=== PATIENT | male | born 1985 | race Caucasian/White ===

== ENCOUNTER 2016-09-30 16:37 | Emergency (ER) | payer BC ==
[~2016-09-30] VITALS: Ht 177.8 cm; Wt 81.6 kg
[2016-09-30 16:43] VITALS: BP 136/87; PULSE 63; RESP 18; TEMP 98.3; O2SAT 98
[2016-09-30] MEDS ORDERED: IBUPROFEN 800 MG TABLET PO ONE (17:30)
[2016-09-30 18:00] VITALS: BP 136/87; PULSE 63; RESP 18; TEMP 98.3; O2SAT 98
== END 2016-09-30 18:00 | disposition home or self-care (01) ==
LOC: SED 16:37
DX: M25.571 Pain in right ankle and joints of right foot (principal); Z96.661 Presence of right artificial ankle joint
CPT/HCPCS: 99284

== ENCOUNTER 2017-05-05 20:49 | Emergency (ER) | payer BC ==
[~2017-05-05] VITALS: Ht 177.8 cm; Wt 81.6 kg
[2017-05-05 20:55] VITALS: BP_SYST 131
[2017-05-05] MEDS ORDERED: IBUPROFEN 800 MG TABLET PO ONE (23:45)
[2017-05-06 00:06] VITALS: BP_SYST 131
== END 2017-05-06 00:06 | disposition home or self-care (01) ==
LOC: SED 20:49
DX: S60.221A Contusion of right hand, initial encounter (principal); W18.39XA Other fall on same level, initial encounter; Y93.89 Activity, other specified; Y92.89 Other specified places as the place of occurrence of the external cause; Y99.8 Other external cause status
CPT/HCPCS: 99284

== ENCOUNTER 2017-10-18 15:09 | Emergency (ER) | payer SELFPAY ==
[~2017-10-18] VITALS: Ht 177.8 cm; Wt 81.6 kg
[2017-10-18 15:17] VITALS: BP_SYST 135
[2017-10-18] MEDS ORDERED: LIDOCAINE 2%, 20 ML MDV INJ ONE (15:30)
[2017-10-18] MEDS ORDERED: BACITRACIN 1 GM OINT TP ONE (15:30)
[2017-10-18 16:31] VITALS: BP_SYST 129
== END 2017-10-18 16:30 | disposition home or self-care (01) ==
LOC: SED 15:09
DX: S61.212A Laceration without foreign body of right middle finger without damage to nail, initial encounter (principal); R03.0 Elevated blood-pressure reading, without diagnosis of hypertension; W22.8XXA Striking against or struck by other objects, initial encounter; Y93.E5 Activity, floor mopping and cleaning; Y92.89 Other specified places as the place of occurrence of the external cause; Y99.8 Other external cause status
CPT/HCPCS: 12001; 99283; J2001

== ENCOUNTER 2017-11-01 15:19 | Emergency (ER) | payer BC ==
[~2017-11-01] VITALS: Ht 177.8 cm; Wt 81.6 kg
[2017-11-01 15:43] VITALS: BP_SYST 113
[2017-11-01 16:21] VITALS: BP_SYST 117
== END 2017-11-01 16:21 | disposition home or self-care (01) ==
LOC: SED 15:19
DX: S61.212D Laceration without foreign body of right middle finger without damage to nail, subsequent encounter (principal); X58.XXXD Exposure to other specified factors, subsequent encounter
CPT/HCPCS: 99281

== ENCOUNTER 2019-12-10 13:52 | Emergency (ER) | payer BC, SELFPAY ==
[~2019-12-10] VITALS: Ht 177.8 cm; Wt 77.1 kg
[2019-12-10 15:12] VITALS: BP_SYST 109
[2019-12-10 15:58] VITALS: BP_SYST 109
== END 2019-12-10 15:58 | disposition home or self-care (01) ==
LOC: SED 13:52
DX: R50.9 Fever, unspecified (principal); R05 Cough; R09.81 Nasal congestion
CPT/HCPCS: 99283